=== PATIENT | male | born 1970 | race Caucasian/White ===

== ENCOUNTER 2019-08-10 11:06 | Inpatient (IN) | payer MEDICAID ==
[~2019-08-10] VITALS: Ht 185.4 cm; Wt 100.4 kg
[2019-08-10 11:34] LABS: BASOPHILS % (AUTO) 0.3 % (0.0-2.0); EOSINOPHILS % (AUTO) 0.1 % (1.0-6.0); HEMATOCRIT 42.7 % (41-53); HEMOGLOBIN 14.3 g/dL (13.5-17.5); LYMPHOCYTES # (AUTO) 0.9 K/uL (1.0-4.8); LYMPHOCYTES % (AUTO) 13.5 % (22.0-44.0); MEAN CORPUSCULAR HEMOGLOBIN 28.9 pg (26.0-34.0); MEAN CORPUSCULAR HGB CONC 33.5 G/dL (31.0-37.0); MEAN CORPUSCULAR VOLUME 86 fL (80-100); MONOCYTES # (AUTO) 0.7 K/uL (0.1-1.0); MONOCYTES % (AUTO) 9.5 % (2.0-9.0); NEUTROPHILS # (AUTO) 5.3 K/uL (1.8-7.7); NEUTROPHILS % (AUTO) 76.6 % (40.0-70.0); PLATELET COUNT (AUTO) 356 K/uL (150-450); RED BLOOD CELL COUNT(AUTO) 4.94 MIL/uL (4.50-5.90); RED CELL DISTRIBUTION WIDTH 13.7 % (11.5-14.5)
[2019-08-10] MEDS ORDERED: LEVO200 PO (11:35)
[2019-08-10] MEDS ORDERED: GABA-533 PO (11:35)
[2019-08-10] MEDS ORDERED: BUPR1FIL3 SL (11:35)
[2019-08-10] MEDS ORDERED: DULO60CA44 PO (11:35)
[2019-08-10] MEDS ORDERED: LISI-661 PO (11:35)
[2019-08-10] MEDS ORDERED: QUET100T PO (11:35)
[2019-08-10] MEDS ORDERED: BUPR1FIL5 SL (11:35)
[2019-08-10 11:45] LABS: ANION GAP 9 mmol/L (8-16); CALCIUM, TOTAL 9.2 mg/dL (8.8-10.5); CARBON DIOXIDE 24 mmol/L (22-29); CHLORIDE 107 mmol/L (98-107); CREATININE 0.97 mg/dL (0.60-1.30); GLOMERULAR FILTR. RATE CALC > 60 mL/min (>60); GLUCOSE,RANDOM 111 mg/dL (70-110); SODIUM SERUM 140 mmol/L (136-145); UREA NITROGEN, BLOOD 15 mg/dL (7-18)
[2019-08-10 11:50] LABS: ALANINE AMINOTRANSFERASE 19 U/L (12-78); ALBUMIN 3.9 g/dL (3.4-5.0); ALKALINE PHOSPHATASE 71 U/L (46-116); ASPARTATE AMINOTRANSFERASE 18 U/L (15-37); BILIRUBIN,TOTAL 0.5 mg/dL (0.1-1.0); TOTAL PROTEIN, SERUM 7.8 g/dL (6.4-8.2)
[2019-08-10 12:37] LABS: AMPHET/METH SCREEN,URINE NEGATIVE (NEGATIVE); BARBITURATE SCREEN, URINE NEGATIVE (NEGATIVE); BENZODIAZEPINES SCREEN,URINE NEGATIVE (NEGATIVE); CANNABINOID SCREEN,URINE POSITIVE (NEGATIVE); COCAINE SCREEN,URINE NEGATIVE (NEGATIVE); METHADONE SCREEN, URINE NEGATIVE (NEGATIVE); OPIATE SCREEN,URINE NEGATIVE (NEGATIVE)
[2019-08-10 12:40] LABS: PHENCYCLIDINE SCREEN,URINE NEGATIVE (NEGATIVE)
[2019-08-10] MEDS ORDERED: HALOPERIDOL 5 MG TABLET PO PRN (12:45)
[2019-08-10] MEDS: LORazepam 2 MG TABLET PO PRN (12:52)
[2019-08-10] MEDS: ZOLPIDEM TARTRATE 10 MG TABLET PO PRN (12:52)
[2019-08-10] MEDS ORDERED: LORazepam 2 MG TABLET PO ONE (13:00)
[2019-08-10] MEDS ORDERED: GABAPENTIN 400 MG CAPSULE PO ONE (13:00)
[2019-08-10 15:00] VITALS: BP 141/86
[2019-08-10] MEDS ORDERED: NICOTINE 21 MG/24 HOUR PATCH TD PRN (15:15)
[2019-08-10 16:03] VITALS: BP 136/74
[2019-08-10] MEDS ORDERED: ACETAMINOPHEN 325 MG TABLET PO PRN (17:15)
[2019-08-10] MEDS ORDERED: MAG HYDROX/AL HYDROX/SIMETH ES 30 ML SUSPENSION UDCUP PO PRN (17:15)
[2019-08-10] MEDS ORDERED: GuaiFENesin/D-METHORPHAN [SUGAR-FREE] 200-20MG/10 ML SYRUP UDCUP PO PRN (17:15)
[2019-08-10] MEDS ORDERED: ONDANSETRON HCL 4 MG TABLET PO PRN (17:15)
[2019-08-10] MEDS ORDERED: CloNIDine HCL 0.1 MG TABLET PO PRN (17:15)
[2019-08-10] MEDS ORDERED: LOPERAMIDE HCL 2 MG CAPSULE PO PRN (17:15)
[2019-08-10] MEDS ORDERED: ALBUTEROL SULFATE HFA 90 MCG/PUFF 8 GM INHALER IH PRN (17:15)
[2019-08-10] MEDS ORDERED: MAGNESIUM HYDROXIDE SUSPENSION 30 ML UDCUP PO PRN (17:15)
[2019-08-10] MEDS ORDERED: NICOTINE 14 MG/24 HOUR PATCH TD PRN (17:15)
[2019-08-10] MEDS ORDERED: DOCUSATE SODIUM 100 MG CAPSULE PO PRN (17:15)
[2019-08-10] MEDS ORDERED: PETROLATUM,WHITE 28 GM JELLY TP PRN (17:15)
[2019-08-11 00:11] VITALS: BP 137/83
[2019-08-11] MEDS ORDERED: PNEUMOCOCCAL VACCINE POLYVALENT 0.5 ML VIAL [PPSV23] IM ONE (00:15)
[2019-08-11] MEDS ORDERED: INFLUENZA VIRUS VACCINE QVS 2019-20 (3YR+)/PF 60 MCG/0.5 ML SYRINGE IM ONE (00:15)
[2019-08-11] MEDS: LORazepam 2 MG TABLET PO PRN ×2 (06:26→15:41)
[2019-08-11] MEDS ORDERED: LEVOTHYROXINE SODIUM 200 MCG TABLET PO SCH (06:30)
[2019-08-11 08:05] VITALS: BP 135/78
[2019-08-11] MEDS: LISINOPRIL 20 MG TABLET PO SCH (08:19)
[2019-08-11 08:44] LABS: CHOL/HDL RATIO 4.9 (4.2-7.3); FREE T4 (FREE THYROXINE) 2.48 ng/dL (0.76-1.46); THYROID STIMULATING HORMONE 0.07 uIU/mL (0.36-3.74)
[2019-08-11] MEDS ORDERED: GuaiFENesin/D-METHORPHAN [SUGAR-FREE] 200-20MG/10 ML SYRUP UDCUP PO PRN (09:45)
[2019-08-11] MEDS ORDERED: CloNIDine HCL 0.1 MG TABLET PO PRN (09:45)
[2019-08-11] MEDS ORDERED: MAG HYDROX/AL HYDROX/SIMETH ES 30 ML SUSPENSION UDCUP PO PRN (09:45)
[2019-08-11] MEDS ORDERED: LOPERAMIDE HCL 2 MG CAPSULE PO PRN (09:45)
[2019-08-11] MEDS ORDERED: DOCUSATE SODIUM 100 MG CAPSULE PO PRN (09:45)
[2019-08-11] MEDS ORDERED: ACETAMINOPHEN 325 MG TABLET PO PRN (09:45)
[2019-08-11] MEDS ORDERED: ONDANSETRON HCL 4 MG TABLET PO PRN (09:45)
[2019-08-11] MEDS ORDERED: NICOTINE 14 MG/24 HOUR PATCH TD PRN (09:45)
[2019-08-11] MEDS ORDERED: MAGNESIUM HYDROXIDE SUSPENSION 30 ML UDCUP PO PRN (09:45)
[2019-08-11] MEDS ORDERED: ALBUTEROL SULFATE HFA 90 MCG/PUFF 8 GM INHALER IH PRN (09:45)
[2019-08-11] MEDS ORDERED: PETROLATUM,WHITE 28 GM JELLY TP PRN (09:45)
[2019-08-11 16:36] VITALS: BP 129/89
[2019-08-11] MEDS: GABAPENTIN 400 MG CAPSULE PO SCH (16:51)
[2019-08-11] MEDS: DULoxetine HCL 60 MG CAPSULE PO SCH (16:52)
[2019-08-11] MEDS: QUEtiapine FUMARATE 100 MG TABLET PO SCH (20:19)
[2019-08-12 00:52] VITALS: BP 123/76
[2019-08-12] MEDS: ZOLPIDEM TARTRATE 10 MG TABLET PO PRN (02:51)
[2019-08-12] MEDS: LEVOTHYROXINE SODIUM 150 MCG TABLET PO SCH (06:48)
[2019-08-12 08:14] VITALS: BP 119/62
[2019-08-12] MEDS: LISINOPRIL 20 MG TABLET PO SCH (08:38)
[2019-08-12] MEDS: DULoxetine HCL 60 MG CAPSULE PO SCH (08:38)
[2019-08-12] MEDS: GABAPENTIN 400 MG CAPSULE PO SCH ×3 (08:38→16:07)
[2019-08-12] MEDS: LORazepam 2 MG TABLET PO PRN ×3 (09:56→20:31)
[2019-08-12 16:06] VITALS: BP 138/93
[2019-08-12] MEDS: TraMADol HCL 50 MG TABLET PO PRN (16:36)
[2019-08-12 20:31] VITALS: BP 122/74
[2019-08-12] MEDS: QUEtiapine FUMARATE 100 MG TABLET PO SCH (20:31)
[2019-08-13] VITALS (7 sets, daily range): BP systolic 110–129; BP diastolic 58–87
[2019-08-13] MEDS: LEVOTHYROXINE SODIUM 150 MCG TABLET PO SCH (06:31)
[2019-08-13] MEDS: LORazepam 2 MG TABLET PO PRN ×3 (06:32→16:16)
[2019-08-13] MEDS: TraMADol HCL 50 MG TABLET PO PRN ×3 (06:32→18:39)
[2019-08-13] MEDS: DULoxetine HCL 60 MG CAPSULE PO SCH (08:36)
[2019-08-13] MEDS: LISINOPRIL 20 MG TABLET PO SCH (08:36)
[2019-08-13] MEDS: GABAPENTIN 400 MG CAPSULE PO SCH ×3 (08:36→16:16)
[2019-08-13] MEDS: QUEtiapine FUMARATE 100 MG TABLET PO SCH (20:12)
[2019-08-13] MEDS: ZOLPIDEM TARTRATE 10 MG TABLET PO PRN (20:13)
[2019-08-14] MEDS: TraMADol HCL 50 MG TABLET PO PRN ×3 (05:00→17:07)
[2019-08-14] MEDS: LORazepam 2 MG TABLET PO PRN ×3 (05:00→16:17)
[2019-08-14 05:02] VITALS: BP 126/79
[2019-08-14] MEDS: LEVOTHYROXINE SODIUM 150 MCG TABLET PO SCH (06:33)
[2019-08-14 08:35] VITALS: BP 119/71
[2019-08-14] MEDS: DULoxetine HCL 30 MG CAPSULE PO SCH (09:00)
[2019-08-14] MEDS: LISINOPRIL 20 MG TABLET PO SCH (09:00)
[2019-08-14] MEDS: GABAPENTIN 400 MG CAPSULE PO SCH ×3 (09:00→16:17)
[2019-08-14 11:04] VITALS: BP 122/78
[2019-08-14 16:18] VITALS: BP 132/89
[2019-08-14] MEDS: QUEtiapine FUMARATE 100 MG TABLET PO SCH (20:12)
[2019-08-15] MEDS: LEVOTHYROXINE SODIUM 150 MCG TABLET PO SCH (06:37)
[2019-08-15] MEDS: TraMADol HCL 50 MG TABLET PO PRN ×3 (06:38→19:12)
[2019-08-15 06:40] VITALS: BP 110/68
[2019-08-15] MEDS: LORazepam 2 MG TABLET PO PRN ×2 (08:19→16:29)
[2019-08-15] MEDS: LISINOPRIL 20 MG TABLET PO SCH (08:19)
[2019-08-15] MEDS: GABAPENTIN 400 MG CAPSULE PO SCH ×3 (08:19→16:29)
[2019-08-15] MEDS: DULoxetine HCL 30 MG CAPSULE PO SCH (08:19)
[2019-08-15 08:42] VITALS: BP 127/84
[2019-08-15 12:45] VITALS: BP 115/77
[2019-08-15 16:07] VITALS: BP 109/61
[2019-08-15 19:12] VITALS: BP 121/70
[2019-08-15] MEDS: QUEtiapine FUMARATE 100 MG TABLET PO SCH (20:11)
[2019-08-15] MEDS: ZOLPIDEM TARTRATE 10 MG TABLET PO PRN (21:46)
[2019-08-16 00:33] VITALS: BP 122/74
[2019-08-16] MEDS: LEVOTHYROXINE SODIUM 150 MCG TABLET PO SCH (06:21)
[2019-08-16 06:35] VITALS: BP 122/74
[2019-08-16] MEDS: TraMADol HCL 50 MG TABLET PO PRN ×3 (06:38→17:21)
[2019-08-16 08:38] VITALS: BP 134/85
[2019-08-16] MEDS: LORazepam 2 MG TABLET PO PRN ×4 (08:52→21:20)
[2019-08-16] MEDS: LISINOPRIL 20 MG TABLET PO SCH (08:52)
[2019-08-16] MEDS: GABAPENTIN 400 MG CAPSULE PO SCH ×3 (08:52→16:57)
[2019-08-16] MEDS: DULoxetine HCL 30 MG CAPSULE PO SCH (08:53)
[2019-08-16 12:42] VITALS: BP 128/84
[2019-08-16 16:12] VITALS: BP 121/65
[2019-08-16] MEDS: QUEtiapine FUMARATE 100 MG TABLET PO SCH (20:34)
[2019-08-17 00:31] VITALS: BP 105/62
[2019-08-17 06:30] VITALS: BP 106/68
[2019-08-17] MEDS: LEVOTHYROXINE SODIUM 150 MCG TABLET PO SCH (06:33)
[2019-08-17] MEDS: TraMADol HCL 50 MG TABLET PO PRN ×2 (06:33→12:33)
[2019-08-17] MEDS: LORazepam 2 MG TABLET PO PRN ×3 (06:33→16:46)
[2019-08-17] MEDS: VENLAFAXINE HCL 75 MG ER CAPSULE PO SCH (08:08)
[2019-08-17] MEDS: GABAPENTIN 400 MG CAPSULE PO SCH ×3 (08:08→16:46)
[2019-08-17] MEDS: LISINOPRIL 20 MG TABLET PO SCH (08:09)
[2019-08-17 08:28] VITALS: BP 113/67
[2019-08-17 16:07] VITALS: BP 125/75
[2019-08-17] MEDS: QUEtiapine FUMARATE 100 MG TABLET PO SCH (20:11)
[2019-08-17] MEDS: ZOLPIDEM TARTRATE 10 MG TABLET PO PRN (21:01)
[2019-08-18 05:06] VITALS: BP 119/66
[2019-08-18 06:25] VITALS: BP 120/70
[2019-08-18] MEDS: LEVOTHYROXINE SODIUM 150 MCG TABLET PO SCH (06:31)
[2019-08-18] MEDS: LORazepam 2 MG TABLET PO PRN ×3 (06:31→14:46)
[2019-08-18] MEDS: TraMADol HCL 50 MG TABLET PO PRN ×3 (06:31→18:40)
[2019-08-18 08:24] VITALS: BP 135/79
[2019-08-18] MEDS: VENLAFAXINE HCL 75 MG ER CAPSULE PO SCH (08:29)
[2019-08-18] MEDS: LISINOPRIL 20 MG TABLET PO SCH (08:29)
[2019-08-18] MEDS: GABAPENTIN 400 MG CAPSULE PO SCH ×3 (08:29→16:16)
[2019-08-18 12:39] VITALS: BP 110/69
[2019-08-18 16:20] VITALS: BP 133/75
[2019-08-18 18:40] VITALS: BP 110/62
[2019-08-18] MEDS: QUEtiapine FUMARATE 100 MG TABLET PO SCH (20:03)
[2019-08-18] MEDS: ZOLPIDEM TARTRATE 10 MG TABLET PO PRN (20:53)
[2019-08-19 00:29] VITALS: BP 144/79
[2019-08-19] MEDS: LEVOTHYROXINE SODIUM 150 MCG TABLET PO SCH (06:30)
[2019-08-19 06:45] VITALS: BP 139/82
[2019-08-19] MEDS: LORazepam 2 MG TABLET PO PRN ×2 (06:47→10:49)
[2019-08-19] MEDS: TraMADol HCL 50 MG TABLET PO PRN ×2 (06:47→12:54)
[2019-08-19 08:16] VITALS: BP 125/70
[2019-08-19] MEDS: LISINOPRIL 20 MG TABLET PO SCH (08:26)
[2019-08-19] MEDS: VENLAFAXINE HCL 75 MG ER CAPSULE PO SCH (08:26)
[2019-08-19] MEDS: GABAPENTIN 400 MG CAPSULE PO SCH ×2 (08:26→12:15)
[2019-08-19] MEDS ORDERED: METHIMAZOLE 5 MG TABLET PO SCH (09:00)
[2019-08-19 12:54] VITALS: BP 130/80
[2019-08-19] MEDS ORDERED: VENL-67 PO (13:47)
[2019-08-19] MEDS ORDERED: GABA-533 PO (13:47)
[2019-08-19] MEDS ORDERED: LEVO150 PO (13:47)
[2019-08-19] MEDS ORDERED: QUET100T PO (13:47)
[2019-08-19] MEDS ORDERED: LISI-662 PO (13:47)
== END 2019-08-19 18:03 | disposition home or self-care (01) | DRG 750 ==
LOC: EMS 11:06 → B2S 12:40
DX: F25.1 Schizoaffective disorder, depressive type (principal); D49.511 Neoplasm of unspecified behavior of right kidney; E89.0 Postprocedural hypothyroidism; F11.10 Opioid abuse, uncomplicated; F12.10 Cannabis abuse, uncomplicated; G89.4 Chronic pain syndrome; I10 Essential (primary) hypertension; Z95.5 Presence of coronary angioplasty implant and graft; Z91.5 Personal history of self-harm; Z79.899 Other long term (current) drug therapy
CPT/HCPCS: 76770; 83036; 84439; 84443; G0480

== ENCOUNTER 2019-10-29 11:27 | Inpatient (IN) | payer MEDICAID ==
[~2019-10-29] VITALS: Ht 185.4 cm; Wt 100.0 kg
[~2019-10-29 11:27] MED LIST: GABA-1201 PO; LEVO150 PO; LISI-662 PO; QUET100T PO; VENL-67 PO
[2019-10-29 17:48] VITALS: BP 135/83
[2019-10-29 18:10] VITALS: BP 158/90
[2019-10-29] MEDS ORDERED: METH-386 PO (18:22)
[2019-10-29] MEDS ORDERED: HYDR-4455 PO (18:25)
[2019-10-29] MEDS ORDERED: HYDR-4065 PO (18:26)
[2019-10-29] MEDS: LORazepam 2 MG TABLET PO PRN (19:54)
[2019-10-29] MEDS: HALOPERIDOL 5 MG TABLET PO PRN (20:25)
[2019-10-30 05:55] VITALS: BP 129/88
[2019-10-30] MEDS: LEVOTHYROXINE SODIUM 150 MCG TABLET PO SCH (06:34)
[2019-10-30] MEDS: HALOPERIDOL 5 MG TABLET PO PRN ×2 (06:35→14:38)
[2019-10-30] MEDS: LORazepam 2 MG TABLET PO PRN ×2 (06:35→12:16)
[2019-10-30 08:19] VITALS: BP 138/77
[2019-10-30] MEDS: LISINOPRIL 20 MG TABLET PO SCH (08:41)
[2019-10-30 08:44] LABS: BASOPHILS % (AUTO) 0.6 % (0.0-2.0); EOSINOPHILS % (AUTO) 2.6 % (1.0-6.0); HEMOGLOBIN 13.3 g/dL (13.5-17.5); LYMPHOCYTES # (AUTO) 1.4 K/uL (1.0-4.8); LYMPHOCYTES % (AUTO) 24.7 % (22.0-44.0); MEAN CORPUSCULAR HEMOGLOBIN 27.3 pg (26.0-34.0); MEAN CORPUSCULAR HGB CONC 32.5 G/dL (31.0-37.0); MEAN CORPUSCULAR VOLUME 84 fL (80-100); MONOCYTES # (AUTO) 0.8 K/uL (0.1-1.0); NEUTROPHILS # (AUTO) 3.4 K/uL (1.8-7.7); NEUTROPHILS % (AUTO) 58.1 % (40.0-70.0); PLATELET COUNT (AUTO) 295 K/uL (150-450); RED BLOOD CELL COUNT(AUTO) 4.88 MIL/uL (4.50-5.90); RED CELL DISTRIBUTION WIDTH 15.2 % (11.5-14.5)
[2019-10-30] MEDS ORDERED: METHIMAZOLE 5 MG TABLET PO SCH (09:00)
[2019-10-30 09:19] LABS: ALANINE AMINOTRANSFERASE 14 U/L (12-78); ALBUMIN 3.8 g/dL (3.4-5.0); ALKALINE PHOSPHATASE 57 U/L (46-116); ANION GAP 10 mmol/L (8-16); ASPARTATE AMINOTRANSFERASE 10 U/L (15-37); BILIRUBIN,TOTAL 0.4 mg/dL (0.1-1.0); CALCIUM, TOTAL 8.3 mg/dL (8.8-10.5); CARBON DIOXIDE 23 mmol/L (22-29); CHLORIDE 104 mmol/L (98-107); CHOL/HDL RATIO 6.3 (4.2-7.3); CHOLESTEROL 190 mg/dL (131-200); CREATININE 1.03 mg/dL (0.60-1.30); FREE T4 (FREE THYROXINE) 1.06 ng/dL (0.76-1.46); GLOMERULAR FILTR. RATE CALC > 60 mL/min (>60); GLUCOSE,RANDOM 136 mg/dL (70-110); HDL CHOLESTEROL 30 mg/dL (40-60); LDL CHOL (CALC.) 129 mg/dL (0-130); POTASSIUM 4.2 mmol/L (3.5-5.1); SODIUM SERUM 137 mmol/L (136-145); THYROID STIMULATING HORMONE 3.85 uIU/mL (0.36-3.74); TOTAL PROTEIN, SERUM 7.1 g/dL (6.4-8.2); TRIGLYCERIDES 154 mg/dL (15-150); UREA NITROGEN, BLOOD 15 mg/dL (7-18)
[2019-10-30] MEDS: VENLAFAXINE HCL 75 MG ER CAPSULE PO SCH (12:16)
[2019-10-30] MEDS: GABAPENTIN 400 MG CAPSULE PO SCH ×2 (12:16→17:00)
[2019-10-30 15:32] VITALS: BP 147/94
[2019-10-30] MEDS: TraMADol HCL 50 MG TABLET PO PRN (15:32)
[2019-10-30] MEDS ORDERED: MAG HYDROX/AL HYDROX/SIMETH ES 30 ML SUSPENSION UDCUP PO PRN (15:45)
[2019-10-30] MEDS ORDERED: NICOTINE 14 MG/24 HOUR PATCH TD PRN (15:45)
[2019-10-30] MEDS ORDERED: MAGNESIUM HYDROXIDE SUSPENSION 30 ML UDCUP PO PRN (15:45)
[2019-10-30] MEDS ORDERED: PETROLATUM,WHITE 28 GM JELLY TP PRN (15:45)
[2019-10-30] MEDS ORDERED: GuaiFENesin/D-METHORPHAN [SUGAR-FREE] 200-20MG/10 ML SYRUP UDCUP PO PRN (15:45)
[2019-10-30] MEDS ORDERED: ONDANSETRON HCL 4 MG TABLET PO PRN (15:45)
[2019-10-30] MEDS ORDERED: ACETAMINOPHEN 325 MG TABLET PO PRN (15:45)
[2019-10-30] MEDS ORDERED: DOCUSATE SODIUM 100 MG CAPSULE PO PRN (15:45)
[2019-10-30] MEDS ORDERED: ALBUTEROL SULFATE HFA 90 MCG/PUFF 8 GM INHALER IH PRN (15:45)
[2019-10-30] MEDS ORDERED: LOPERAMIDE HCL 2 MG CAPSULE PO PRN (15:45)
[2019-10-30] MEDS ORDERED: CloNIDine HCL 0.1 MG TABLET PO PRN (15:45)
[2019-10-30 16:07] VITALS: BP 147/94
[2019-10-30 17:44] VITALS: BP 132/78
[2019-10-30] MEDS: QUEtiapine FUMARATE 100 MG TABLET PO SCH (20:00)
[2019-10-31 00:40] VITALS: BP 122/85
[2019-10-31] MEDS: ZOLPIDEM TARTRATE 10 MG TABLET PO PRN (00:42)
[2019-10-31] MEDS: TraMADol HCL 50 MG TABLET PO PRN ×3 (00:43→17:02)
[2019-10-31 00:51] VITALS: BP 122/85
[2019-10-31] MEDS: LEVOTHYROXINE SODIUM 150 MCG TABLET PO SCH (05:50)
[2019-10-31] MEDS: LORazepam 2 MG TABLET PO PRN ×3 (05:50→17:45)
[2019-10-31] MEDS: HALOPERIDOL 5 MG TABLET PO PRN ×2 (05:50→13:58)
[2019-10-31 08:02] VITALS: BP 120/64
[2019-10-31] MEDS: VENLAFAXINE HCL 75 MG ER CAPSULE PO SCH (08:15)
[2019-10-31] MEDS: GABAPENTIN 400 MG CAPSULE PO SCH ×3 (08:16→16:21)
[2019-10-31] MEDS: LISINOPRIL 20 MG TABLET PO SCH (08:16)
[2019-10-31 16:19] VITALS: BP 128/95
[2019-10-31] MEDS: QUEtiapine FUMARATE 100 MG TABLET PO SCH (20:03)
[2019-11-01 01:42] VITALS: BP 119/87
[2019-11-01] MEDS: TraMADol HCL 50 MG TABLET PO PRN ×3 (01:49→18:09)
[2019-11-01] MEDS: LORazepam 2 MG TABLET PO PRN ×4 (01:49→18:09)
[2019-11-01 05:59] VITALS: BP 124/89
[2019-11-01] MEDS: LEVOTHYROXINE SODIUM 150 MCG TABLET PO SCH (06:00)
[2019-11-01] MEDS: IBUPROFEN 400 MG TABLET PO PRN ×2 (06:00→16:05)
[2019-11-01] MEDS: HALOPERIDOL 5 MG TABLET PO PRN ×2 (06:00→16:05)
[2019-11-01] MEDS: GABAPENTIN 400 MG CAPSULE PO SCH ×3 (08:42→16:04)
[2019-11-01] MEDS: LISINOPRIL 20 MG TABLET PO SCH (08:42)
[2019-11-01] MEDS: VENLAFAXINE HCL 75 MG ER CAPSULE PO SCH (08:42)
[2019-11-01 08:52] VITALS: BP 115/71
[2019-11-01 09:57] VITALS: BP 124/66
[2019-11-01 16:24] VITALS: BP 124/75
[2019-11-01] MEDS: QUEtiapine FUMARATE 100 MG TABLET PO SCH (20:09)
[2019-11-01] MEDS: ZOLPIDEM TARTRATE 10 MG TABLET PO PRN (22:29)
[2019-11-02 04:37] VITALS: BP 133/86
[2019-11-02] MEDS: TraMADol HCL 50 MG TABLET PO PRN ×3 (04:42→20:55)
[2019-11-02] MEDS: LORazepam 2 MG TABLET PO PRN ×3 (04:42→17:04)
[2019-11-02] MEDS: LEVOTHYROXINE SODIUM 150 MCG TABLET PO SCH (06:02)
[2019-11-02] MEDS: VENLAFAXINE HCL 75 MG ER CAPSULE PO SCH (08:10)
[2019-11-02] MEDS: LISINOPRIL 20 MG TABLET PO SCH (08:10)
[2019-11-02] MEDS: GABAPENTIN 400 MG CAPSULE PO SCH ×3 (08:10→16:43)
[2019-11-02 08:45] VITALS: BP 127/77
[2019-11-02] MEDS: HALOPERIDOL 5 MG TABLET PO PRN ×2 (09:07→15:04)
[2019-11-02 11:37] VITALS: BP 119/80
[2019-11-02 16:12] VITALS: BP 128/77
[2019-11-02] MEDS: IBUPROFEN 400 MG TABLET PO PRN (19:42)
[2019-11-02] MEDS: QUEtiapine FUMARATE 100 MG TABLET PO SCH (20:34)
[2019-11-03 05:11] VITALS: BP 110/72
[2019-11-03] MEDS: LORazepam 2 MG TABLET PO PRN ×2 (05:15→10:07)
[2019-11-03] MEDS: TraMADol HCL 50 MG TABLET PO PRN ×2 (05:15→14:21)
[2019-11-03] MEDS: LEVOTHYROXINE SODIUM 150 MCG TABLET PO SCH (05:33)
[2019-11-03 08:19] VITALS: BP 121/68
[2019-11-03] MEDS: VENLAFAXINE HCL 75 MG ER CAPSULE PO SCH (08:20)
[2019-11-03] MEDS: GABAPENTIN 400 MG CAPSULE PO SCH ×3 (08:20→16:11)
[2019-11-03] MEDS: LISINOPRIL 20 MG TABLET PO SCH (08:20)
[2019-11-03] MEDS: HALOPERIDOL 5 MG TABLET PO PRN (10:56)
[2019-11-03 14:21] VITALS: BP 123/80
[2019-11-03] MEDS ORDERED: VENL-67 PO (14:58)
[2019-11-03] MEDS ORDERED: GABA-1201 PO (14:58)
[2019-11-03] MEDS ORDERED: QUET100T33 PO (14:58)
[2019-11-03 16:03] VITALS: BP 148/86
== END 2019-11-03 17:22 | disposition home or self-care (01) | DRG 750 ==
LOC: B2S 17:15
DX: F25.1 Schizoaffective disorder, depressive type (principal); R45.851 Suicidal ideations; D49.511 Neoplasm of unspecified behavior of right kidney; E03.9 Hypothyroidism, unspecified; D64.9 Anemia, unspecified; F32.9 Major depressive disorder, single episode, unspecified; Z91.5 Personal history of self-harm; G89.29 Other chronic pain; M54.9 Dorsalgia, unspecified; I10 Essential (primary) hypertension; Z88.8 Allergy status to other drugs, medicaments and biological substances; F12.10 Cannabis abuse, uncomplicated; F11.10 Opioid abuse, uncomplicated; F19.10 Other psychoactive substance abuse, uncomplicated; F10.10 Alcohol abuse, uncomplicated; Y90.9 Presence of alcohol in blood, level not specified; Z95.5 Presence of coronary angioplasty implant and graft
CPT/HCPCS: 84439; 84443; 87081